=== PATIENT | female | born 1980 | race Caucasian/White ===

== ENCOUNTER 2023-05-31 09:55 | Day surgery (SDC) | payer OTHER ==
[~2023-05-31] VITALS: Ht 170.2 cm; Wt 96.7 kg
[2023-05-31] MEDS ORDERED: Prinivil10 MG (10:36)
== END 2023-05-31 12:55 | disposition home or self-care (01) ==
LOC: ORSCSDS 09:55
PROVIDERS: Internal Medicine Gastroenterology
PROC: 0DB68ZX Excision of Stomach, Via Natural or Artificial Opening Endoscopic, Diagnostic (ICD-10-PCS; principal; 2023-05-31 11:45)
PROC: 0DB98ZX Excision of Duodenum, Via Natural or Artificial Opening Endoscopic, Diagnostic (ICD-10-PCS; principal; 2023-05-31 11:45)
DX: R11.2 Nausea with vomiting, unspecified (principal); K21.9 Gastro-esophageal reflux disease without esophagitis; K29.70 Gastritis, unspecified, without bleeding; I10 Essential (primary) hypertension; M79.7 Fibromyalgia; R10.13 Epigastric pain; K59.09 Other constipation; Z79.899 Other long term (current) drug therapy
CPT/HCPCS: 88305; 88342; J2704; J7120